=== PATIENT | female | born 1965 | race Caucasian/White ===

== ENCOUNTER 2020-04-10 11:10 | Emergency (ER) | payer SELFPAY ==
--- OUTSIDE RECORDS SUMMARY | 2020-04-10 11:24 | XMS REPORT | Summary of Care ---
:1965 Author Organization [facility] - [facility] Address [address] [place] [id number] Care Team Providers Name Role Phone Pcp, Does Not Have A Primary Care Provider Reason for Visit Reason Comments Abscess left arm Auth/Cert Status Reason Specialty Diagnoses / Referred By Referred To Procedures Contact Contact Emergency Medicine [facility] Em ergency Dept [address] [place] [phone] Fax: Encounter Details Date Type Department Care Team Description 03/29/2020 Emergency ADC-Emergency Sarah Millan Absces s (Primary Dx) Department [employer] [address] [place] [address] [address] [place] [address] [address] [place] [address] Allergies No Known Allergiesdocumented as of this encounter (statuses as of 03/29/2020) Medications Medication Sig Dispensed Refills Start Date End Date Status buPROPion SR Take 1 tablet by 180 tablet 0 01/18/2017 Active (WELLBUTRIN SR) 150 mouth 2 (two) mg SR tablet times daily. mupirocin 2 % Apply to 22 g 0 03/14/2020 Activ e ointmentIndications: area(s) 3 Wound of right lower (three) times extremity, initial daily. encounter cephALEXin 500 mg Take 1 tablet by 28 tablet 0 03/29/2020 11/0 09/2019 Active tabletIndications: mouth 4 (four) Abscess times daily for 7 days. traMADoL 50 mg Take 1 tablet by 10 tablet 0 03/29/2020 Active tabletIndications: mouth every 6 acute pain (six) hours as needed for Pain (scale 7-10). 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 1 Smoking addiction 03/15/2020 Cellulitis of right lower extremity 03/15/2020 Depression 11/20/2016 Anxiety 11/20/2016 Smoker 11/20/2016 documented as of this encounter (statuses as of 03/29/2020) Immunizations Name Administration Dates Next Due TDAP 01/29/2020 documented as of this encounter Social History Tobacco Use Types Packs/Day Years Used Date Current Every Day Smoker Cigarettes 0.25 20 Smokeless Tobacco: Never Used Alcohol Use Drinks/Week oz/Week Comments No Sex Assigned at Date Recorded Not on file COVID-19 Exposure Response Date Recorded In the last month, have you been in contact with No / Unsure 03/29/2020 10:50 AM CDT someone who was confirmed or suspected to have Coronavirus / COVID-19? documented as of this encounter Last Filed Vital Signs Vital Sign Reading Time Taken Comments Blood Pressure 129/78 03/29/2020 12:16 PM CDT Pulse 81 03/29/2020 12:16 PM CDT Temperature 37.1 C (98.8 F) 03/29/2020 12:16 PM CDT Respiratory Rate 16 03/29/2020 12:16 PM CDT Oxygen Saturation 99% 03/29/2020 12:16 PM CDT Inhaled Oxygen Concentration - - Weight 86.2 kg (190 lb) 03/29/2020 10:54 AM CDT Height 175.3 cm (5' 9") 03/29/2020 10:54 AM CDT Body Mass Index 28.06 03/29/2020 10:54 AM CDT documented in this encounter Discharge Instructions InstructionsIbSarah garay FNP - 03/29/2020 You were seen today for Chief Complaint Patient presents with Abscess left arm Your ER diagnosis was ICD-10-CM ICD-9-CM 1. Abscess L02.91 682.9 NO LIFE-THREATENING FINDINGS ON TODAY'S EXAM. YOUR PRESCRIPTIONS : Medication List START taking these medications cephALEXin 500 mg tablet Commonly known as: KEFLEX Take 1 tablet by mouth 4 (four) times daily for 7 days. traMADoL 50 mg tablet Commonly known as: ULTRAM Take 1 tablet by mouth every 6 (six) hours as needed for Pain (scale 7-10). Indications: acute pain ASK your doctor about these medications buPROPion SR 150 mg SR tablet Commonly known as: Wellbutrin SR Take 1 tablet by mouth 2 (two) times daily. mupirocin 2 % ointment Commonly known as: BACTROBAN OINT Apply to area(s) 3 (three) times daily. Where to Get Your Medications You can get these medications from any pharmacy Bring a paper prescription for each of these medications cephALEXin 500 mg tablet traMADoL 50 mg tablet ER precautions and follow up : 1. Return to ER if your symptoms should worsen or fail to improve within 72 hours. 2. The care provided in the emergency room was for acute problems only. 3. You should follow up with your primary care provider within 72 hours. 4. Fill and take all your medications as prescribed. 5. Make sure you are staying adequately hydrated. Busque attencion immediatamente si usted tiene los sitomas sigue, vuelve peor o si hay sitomas nuevas o para cualquiera preoccupacion incluyendo dolor del pecho, falta aire, se siente debile, mas fievre, mas dolor, nausea, vomitando, sangrando que no es normal, confusion, baja or pierdas conciencia. FOLLOW-UP RECOMMENDATIONS: RECOMMEND FOLLOW-UP WITH A PRIMARY CARE PROVIDER OR SPECIALIST IN 2-5 DAYS, ESPECIALLY IF NO IMPROVEMENT IN SYMPTOMS. MAY FOLLOW-UP WITH A PROVIDER OF YOUR CHOICE, SUCH : 1. A PHYSICIAN OF YOUR CHOICE 2. [facility], . LOCATIONS IN MEDICAL CENTER CLINIC 3. [facility], [address], [place]; [phone] OR, IF YOU WISH TO FOLLOW-UP WITHIN THE [facility], MAY TRY THESE OPTIONS (CLINIC APPOINTMENTS AVAILABLE ON NQOS-PP-EDEI BASIS): 1. SCHEDULE AN APPOINTMENT ONLINE AT [email or web address][facility] 2. OR CALL THE [facility] ACCESS CENTER AT OR 3. OR CALL YOUR [facility] PHYSICIAN'S OFFICE DIRECTLY IF YOU ARE ALREADY AN ESTABLISHED [facility] PATIENT. AttachmentsThe following attachments cannot be sent through Care Everywhere. Abscess, Incision And Drainage (Fijian)documented in this encounter ED Notes Isamar Hernandez RN - 03/29/2020 10:45 AM CDTPatient came in with complaints of abscess to the medial aspect of her left upper arm since Thursday. Patient said she had a trauma to her left arm on January 28 but noticed the abscess this Thursday. Patient a&ox4 upon arrival. documented in this encounter Miscellaneous Notes ED Nurse Note - Isamar Hernandez RN - 03/29/2020 12:19 PM CDTPatient discharged home with prescriptions and instructions given. Patient left ER vitally stable and ambulatory in steady gait and states she feels better. No valuables left in ED. documented in this encounter Plan of Treatment Name Type Priority Associated Diagnoses Order S chedule WOUND/ASPIRATE OR LAB SADIE Abscess ONCE for 1 Occurrences ABSCESS CULTURE starting until 03/29/2020 WOUND CULTURE LAB SADIE Abscess Once for 1 Occ urrences starting 2019 until 03/29/2020 Health Maintenance Due Date Last Done Comments HEPATITIS C (HCV) SCREEN 1965 PNEUMOCOCCAL 0-64 YEARS COMBINED SERIES (1 of 1 - 1970 PPSV23) Depression Screening 1976 PAP SMEAR 1985 Breast Cancer Screening (MAMMOGRAM) 2004 COLON CANCER SCREENING ANNUAL FIT/FOBT 2014 COLON CANCER SCREENING FIT DNA EVERY 3 YEARS 2014 COLON CANCER SCREENING SIGMOIDOSCOPY EVERY 5 YEARS 2014 COLONOSCOPY 2014 Colorectal Cancer Screening 2014 Zoster Recombinant Vaccine (SHINGRIX) (1 of 2) 2014 LUNG CANCER SCREEN: Recommended for age 55-80 with 30 08/29/2019 + pack year history INFLUENZA VACCINE (#1) 2020 DTaP,Tdap,and Td Vaccines (2 - Td) 01/28/2030 01/29/2020 documented as of this encounter Procedures Procedure Name Priority Date/Time Associated Diagnosis Comme nts NOTICE OF PRIVACY Routine 03/29/2020 10:43 AM CDT PRACTICES CONSENT/REFUSAL FOR Routine 03/29/2020 10:43 AM CDT DIAGNOSIS AND TREATMENT documented in this encounter Results Not on filedocumented in this encounter Visit Diagnoses Diagnosis Abscess - Primary Cellulitis and abscess of unspecified si te documented in this encounter
--- OUTSIDE RECORDS SUMMARY | 2020-04-10 11:24 | XMS REPORT | Summary of Care ---
:1965 Author Organization [facility] - [facility] Address [address] [place] [id number] Care Team Providers Name Role Phone Pcp, Does Not Have A Primary Care Provider Reason for Referral (STAT) Status Reason Specialty Diagnoses / Referred By Referred To Procedures Contact Contact Authorized Plastic Surgery Diagnoses Wound of right lower extremity, initial encounter Varsah Sales Procedures CONSULT/REFERRAL WOUND CARE RICCO Hurst [address] [place] [phone] Reason for Visit Reason Comments Wound open area to right calf Encounter Details Date Type Department Care Team Description 03/14/2020 Urgent Care [facility] Giovana Wynn FNP [address] [place] [phone] Wound of right lower extremity, initial encounter (Primary Dx); [facility] Provider, [facility] Elevated BP without diagnosis of hyperte nsion; [address] [place] [phone] Allergies No Known Allergiesdocumented as of this encounter (statuses as of 03/15/2020) Medications Medication Sig Dispensed Refills Start Date End Date Status buPROPion SR Take 1 180 tablet 0 01/18/2017 Activ e (WELLBUTRIN SR) tablet by 150 mg SR tablet mouth 2 (two) times daily. sulfamethoxazole- Take 1 14 tablet 0 03/14/2020 A ctive trimethoprim tablet by 0 (BACTRIM DS) mouth 2 800-160 mg per (two) times tabletIndications daily for 7 : Wound of right days. lower extremity, initial encounter mupirocin 2 % Apply to 22 g 0 03/14/2020 Activ e ointmentIndicatio area(s) 3 ns: Wound of (three) right lower times daily. extremity, initial encounter predniSONE 20 mg 3 tabs PO QD 18 tablet 0 11/20/2016 Discontinued tabletIndications X 3 days, 0 (T herapy : Sinusitis, then 2 tabs compl eted) unspecified PO QD X 3 chronicity, days, then 1 unspecified tab PO QD X location 3 days traMADol 50 mg Take 1 20 tablet 0 02/06/2019 Disc ontinued tabletIndications tablet by 0 (T herapy : Rib pain on mouth every comp leted) left side 8 (eight) hours as needed for Pain (scale 4-6). 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 documented as of this encounter Last Filed Vital Signs Vital Sign Reading Time Taken Comments Blood Pressure 150/89 03/14/2020 2:14 PM CDT Pulse 90 03/14/2020 2:09 PM CDT Temperature 37.1 C (98.7 F) 03/14/2020 2:09 PM CDT Respiratory Rate 18 03/14/2020 2:09 PM CDT Oxygen Saturation 98% 03/14/2020 2:09 PM CDT Inhaled Oxygen Concentration - - Weight 86.2 kg (190 lb) 03/14/2020 2:09 PM CDT Height 175.3 cm (5' 9") 03/14/2020 2:09 PM CDT Body Mass Index 28.06 03/14/2020 2:09 PM CDT documented in this encounter Patient Instructions Patient InstructionsVarsha Sales PA - 03/14/2020 2:00 PM CDT Patient Education Cellulitis Cellulitis is an infection of the deep layers of skin. A break in the skin, such as a cut or scratch, can let bacteria under the skin. If the bacteria get to deep layers of the skin, it can be serious.If not treated, cellulitis can get into the bloodstream and lymph nodes. The infection can then spread throughout the body. This causes serious illness. Cellulitis causes the affected skin to become red, swollen, warm, and sore. The reddened areas have a visible border. An open sore may leak fluid (pus). You may have a fever, chills, and pain. Cellulitis is treated with antibiotics taken for 7 to 10 days. An open sore may be cleaned and covered with cool wet gauze. Symptoms should get better 1 to 2 days after treatment is started. Make sure to take all the antibiotics for the full number of days until they are gone. Keep taking the medicineeven if your symptoms go away. Home care Follow these tips: Limit the use of the part of your body with cellulitis. If the infection is on your leg, keep your leg raised while sitting. This helps reduce swelling. Take all of the antibiotic medicine exactly as directed until it is gone. Don't miss any doses, especially during the first 7 days. Dont stop taking the medicine when your symptoms get better. Keep the affected area clean and dry. Wash your hands with soap and clean, running water before and after touching your skin. Anyone else who touches your skin should also wash his or her hands. Don't share towels. Follow-up care Follow up with your healthcare provider, or as advised. If your infection doesn't go away on the first antibiotic, your healthcare provider will prescribe a different one. When to seek medical advice Call your healthcare provider right away if any of these occur: Red areas that spread Swelling or pain that gets worse Fluid leaking from the skin (pus) Fever higher of 100.4 F (38.0 C) or higher after 2 days on antibiotics [employer] last reviewed this educational content on 12/30/201819996997-3240 [employer], [employer]. [address] [place] [address], [place] [address]. All rights reserved. This information is not intended as a substitute for professional medical care. Always follow your healthcare professional's instructions. Patient Education Sulfamethoxazole; Trimethoprim, SMX-TMP tablets Brand Names: Bacter-Aid DS, Bactrim, Bactrim DS, Septra, Septra DS What is this medicine? SULFAMETHOXAZOLE; TRIMETHOPRIM or SMX-TMP (suhl fuh meth OK carlos enrique zohl; trye METH oh prim) is a combination of a sulfonamide antibiotic and a second antibiotic, trimethoprim. It is used to treat or prevent certain kinds of bacterial infections. It will not work for colds, flu, or other viral infections. How should I use this medicine? Take this medicine by mouth with a full glass of water. Follow the directions on the prescription label. Take your medicine at regular intervals. Do not take it more often than directed. Do not skip doses or stop your medicine early. Talk to your traveling auditor regarding the use of this medicine in children. Special care may be needed. This medicine has been used in children as young as 2 months of age. What side effects may I notice from receiving this medicine? Side effects that you should report to your doctor or health career guidance counselor as soon as possible: allergic reactions like skin rash or hives, swelling of the face, lips, or tongue breathing problems fever or chills, sore throat irregular heartbeat, chest pain joint or muscle pain pain or difficulty passing urine red pinpoint spots on skin redness, blistering, peeling or loosening of the skin, including inside the mouth unusual bleeding or bruising unusually weak or tired yellowing of the eyes or skin Side effects that usually do not require medical attention (report to your doctor or health career guidance counselor if they continue or are bothersome): diarrhea dizziness headache loss of appetite nausea, vomiting nervousness What may interact with this medicine? Do not take this medicine with any of the following medications: aminobenzoate potassium dofetilide metronidazole This medicine may also interact with the following medications: FANY inhibitors like benazepril, enalapril, lisinopril, and ramipril control pills cyclosporine digoxin diuretics indomethacin medicines for diabetes methenamine methotrexate phenytoin potassium supplements pyrimethamine sulfinpyrazone tricyclic antidepressants warfarin What if I miss a dose? If you miss a dose, take it as soon as you can. If it is almost time for your next dose, take only that dose. Do not take double or extra doses. Where should I keep my medicine? Keep out of the reach of children. Store at room temperature between 20 to 25 degrees C (68 to 77 degrees F). Protect from light. Throwaway any unused medicine after the expiration date. What should I tell my health care provider before I take this medicine? They need to know if you have any of these conditions: anemia asthma being treated with anticonvulsants if you frequently drink alcohol containing drinks kidney disease liver disease low level of folic acid or fppuvhh-[id number] dehydrogenase poor nutrition or malabsorption porphyria severe allergies thyroid disorder an unusual or allergic reaction to sulfamethoxazole, trimethoprim, sulfa drugs, other medicines, foods, dyes, or preservatives or trying to get breast-feeding What should I watch for while using this medicine? Tell your doctor or health career guidance counselor if your symptoms do not improve. Drink several glasses of water a day to reduce the risk of kidney problems. Do not treat diarrhea with over the counter products. Contact your doctor if you have diarrhea that lasts more than 2 days or if it is severe and watery. This medicine can make you more sensitive to the sun. Keep out of the sun. If you cannot avoid beingin the sun, wear protective clothing and use a sunscreen. Do not use sun lamps or tanning beds/booths. NOTE:This sheet is a summary. It may not cover all possible information. If you have questions aboutthis medicine, talk to your doctor, pharmacist, or health care provider. Copyright 2018 [employer] documented in this encounter Progress Notes Varsha Sales PA - 03/14/2020 2:00 PM CDT Cc: Chief Complaint Patient presents with Wound open area to right calf Camila Fields is a 54 year old female. Wound: Location: R calf Patient fell off horse and then horse stepped on her. She was transported to [facility] for large LUE wound at that time. She did have wound to R calf but at the time was more bruised. Had imaging done there including CT head, thorax and a/p. Patient advised to have surgery to LUE but decided to leave AMA so they sutured her LUE and she left. Was a bruise and but about 3 weeks ago started opening up and turned red Run over by horse 01/29/2020 Color: red Size: medium on R calf Changes in size or color: now more red where as before it was more bruised Last TDAP: 01/29/2020 Associated s/s: + tenderness + redness No f/c No streaking redness, warmth, swelling No purulent drainage, induration No restricted ROM or pain with ROM No abdominal pain, n/v/d/c Tx: neosporin Allergies Camila has No Known Allergies. Medications Current Outpatient Medications Medication Sig Dispense Refill buPROPion SR (WELLBUTRIN SR) 150 mg SR tablet Take 1 tablet by mouth 2 (two) times daily. 180 tablet 0 No current facility-administered medications for this visit. Histories Past Medical History: Diagnosis Date Cancer Depression Past Surgical History: Procedure Laterality Date HYSTERECTOMY Social History Socioeconomic History Marital status: Single Spouse name: Not on file Number of children: Not on file Years of education: Not on file Highest education level: Not on file Occupational History Not on file Social Needs Financial resource strain: Not on file Food insecurity Worry: Not on file Inability: Not on file Transportation needs Medical: Not on file Non-medical: Not on file Tobacco Use Smoking status: Current Every Day Smoker Packs/day: 0.25 Years: 20.00 Pack years: 5.00 Types: Cigarettes Smokeless tobacco: Never Used Substance and Sexual Activity Alcohol use: No Drug use: No Sexual activity: Never Lifestyle Physical activity Days per week: Not on file Minutes per session: Not on file Stress: Not on file Relationships Social connections Talks on phone: Not on file Gets together: Not on file Attends voodoo service: Not on file Active member of club or organization: Not on file Attends meetings of clubs or organizations: Not on file Relationship status: Not on file Intimate partner violence Fear of current or ex partner: Not on file Emotionally abused: Not on file Physically abused: Not on file Forced sexual activity: Not on file Other Topics Concern Not on file Social History Narrative Lives with friends. No history of abuse Current everyday smoker History reviewed. No pertinent family history. Review of Systems Constitutional: Negative for activity change, appetite change, chills, diaphoresis, fatigue, fever and unexpected weight change. Respiratory: Negative for cough, chest tightness, shortness of breath and wheezing. Cardiovascular: Negative for chest pain, palpitations and leg swelling. Gastrointestinal: Negative for abdominal pain, constipation, diarrhea, nausea and vomiting. Musculoskeletal: Negative for arthralgias, back pain, gait problem and myalgias. Skin: Positive for wound. Negative for pallor and rash. Neurological: Negative for weakness and numbness. Vital Signs BP (!) 150/89 | Pulse 90 | Temp 37.1 C (98.7 F) (Oral) | Resp 18 | Ht 5' 9" (1.753 m) | Wt 190 lb (86.2 kg) | SpO2 98% | BMI 28.06 kg/m Vitals: 03/14/20 1409 03/14/20 1414 BP: (!) 154/89 (!) 150/89 Pulse: 90 Resp: 18 Temp: 37.1 C (98.7 F) TempSrc: Oral SpO2: 98% Weight: 190 lb (86.2 kg) Height: 5' 9" (1.753 m) Physical Exam Vitals signs and nursing note reviewed. Constitutional: General: She is not in acute distress. Appearance: She is not ill-appearing, toxic-appearing or diaphoretic. HENT: Head: Normocephalic and atraumatic. Right Ear: External ear normal. Left Ear: External ear normal. Eyes: Conjunctiva/sclera: Conjunctivae normal. Cardiovascular: Rate and Rhythm: Normal rate and regular rhythm. Pulmonary: Effort: Pulmonary effort is normal. Breath sounds: Normal breath sounds. Abdominal: General: Bowel sounds are normal. There is no distension. Tenderness: There is no abdominal tenderness. There is no guarding. Musculoskeletal: Normal range of motion. Right lower leg: No edema. Left lower leg: No edema. Skin: General: Skin is warm and dry. Neurological: Mental Status: She is alert. Assessment/Plan Wound of right lower extremity, initial encounter (primary encounter diagnosis) Plan: CONSULT/REFERRAL WOUND CARE, sulfamethoxazole-trimethoprim (BACTRIM DS) 800-160 mg per tablet, mupirocin 2 % ointment Afebrile, well appearing, nontoxic, NAD. HR < 100. Wound x 2 months. Now with signs of cellulitis. Recommended imaging, labs and wound culture. Patient refuses at this time. Needs follow-up with wound care for management. Patient agrees. Will start on bactrim, take full course of abx with food and probiotic. Appointment scheduled with wound care tomorrow, recommend follow-up. Educated on the following at home care: -Take full course of antibiotic with food, probiotic. -Wash TID with warm soap and water -Apply mupirocin TID with q-tip -Warm compress -Julio César borders of erythema to monitor -Avoid picking/popping ER--> worsening, severe pain, f/c, n/v, spreading redness Elevated BP without diagnosis of hypertension Plan: No pmh of HTN. No cp, palpitations, sob, HO, dizziness, syncope. Watch blood pressure: check 2-3 times daily and log. Look for high numbers >= 130/80. Log reading. Follow up with PCP. Low salt Low caffeine diet Low alcohol Avoid tobacco products. Avoid decongestants Heart Healthy Exercise: total of 150 minutes of cardio: walking,swimming, hiking, biking every week. Heart healthy diet: low fat/carb/sugar diet; increase lean meat-chicken, turkey, fish; increase vegetables/fruits ( still be careful because elevated sugar level) Er--> chest pain, dizziness, passing out, fluttering of heart, shortness of breath. Financial difficulties Plan: CONSULT/REFERRAL SOCIAL WORK-AMBULATORY Patient without medical insurance. Information provided about [facility] clinic. Will reach out to to help get connected with available resources. Pt ed/precautions given in detail regarding conditions/medicaitons. Er precautions given. Pt reportsunderstanding and agrees. rtc if s/s worsen or do not improve; Plan of care, desired health behaviors, goals, Ddx, & any prescribed or OTC medications discussed with patient. Education resources & self management tools provided and reviewed with AVS. Patient/guardian/family verbalized understanding & agrees to plan of care. Barriers to care: NONE Ability to manage care: Good This visit did not involve counseling and coordination that comprised more than 50% of the visit time. documented in this encounter Plan of Treatment Date Type Specialty Care Team Description 03/20/2020 Office Visit Internal Medicine Boston Burt MD [address] [address] [phone] Health Maintenance Due Date Last Done Comments HEPATITIS C (HCV) SCREEN 1965 PNEUMOCOCCAL 0-64 YEARS COMBINED SERIES (1 of 1 - 1970 PPSV23) Depression Screening 1976 DTaP,Tdap,and Td Vaccines (1 - Tdap) 08/29/1983 PAP SMEAR 1985 Breast Cancer Screening (MAMMOGRAM) 2004 COLON CANCER SCREENING ANNUAL FIT/FOBT 2014 COLON CANCER SCREENING FIT DNA EVERY 3 YEARS 2014 COLON CANCER SCREENING SIGMOIDOSCOPY EVERY 5 YEARS 2014 COLONOSCOPY 2014 Colorectal Cancer Screening 2014 Zoster Recombinant Vaccine (SHINGRIX) (1 of 2) 2014 LUNG CANCER SCREEN: Recommended for age 55-80 with 30 + 08/29/19 20 pack year history INFLUENZA VACCINE (#1) 2020 documented as of this encounter Results Not on filedocumented in this encounter Visit Diagnoses Diagnosis Wound of right lower extremity, initial encounter - Primary Elevated BP without diagnosis of hyperte nsion Financial difficulties Inadequate material resources documented in this encounter
--- OUTSIDE RECORDS SUMMARY | 2020-04-10 11:24 | XMS REPORT | Summary of Care ---
:1965 Author Organization [facility] Address [address] [place] [id number] Care Team Providers Name Role Phone Pcp, Does Not Have A Primary Care Provider Reason for Visit Reason Comments Social Work Financial Assistance Encounter Details Date Type Department Care Team Description 03/15/2020 Patient Outreach [facility] Family Adriana Mahoney So cial Work Medicine [facility] ([address] Drive [place], [place] [phone] Allergies No Known Allergiesdocumented as of this encounter (statuses as of 03/15/2020) Medications Medication Sig Dispensed Refills Start Date End Date Status buPROPion SR Take 1 tablet by 180 tablet 0 01/18/2017 Active (WELLBUTRIN SR) 150 mouth 2 (two) mg SR tablet times daily. sulfamethoxazole-trim Take 1 tablet by 14 tablet 0 03/14/2020 03/21/2020 Active ethoprim (BACTRIM DS) mouth 2 (two) 800-160 mg per times daily for tabletIndications: 7 days. Wound of right lower extremity, initial encounter mupirocin 2 % Apply to 22 g 0 03/14/2020 Activ e ointmentIndications: area(s) 3 Wound of right lower (three) times extremity, initial daily. encounter documented as of this encounter (statuses as [...] of this encounter Last Filed Vital Signs Not on filedocumented in this encounter Progress Notes Adriana Mahoney LMSW - 03/15/2020 11:44 AM CDTSocial Work Note Warp Dyeing Tender (SW) received consult/order for Financial Assistance. SW spoke with patient by phone (p: [phone] em: [email or web address]) to assess needs. Patient reports presently uninsured/unemployed; seeking program to assist with primary care and medications. SW reviewed final resources for basic needs. Patient reports presently receiving unemployment compensation. SW reviewed emergency SNAP benefit program (p: [phone]). Patent verbalized understanding. SW reviewed [facility] p: [phone] and [facility] [place] p:[phone]) program services Medical, Dental, Medications and Behavioral Health ;providing contactinformation. Patient verbalized understanding; expressing appreciation. No new needs identified at p resent. SW services complete. Adriana Mahoney LMSW, [facility] Warp Dyeing Tender- Stock Holder Management [facility] [place], Marlyn [place] and [place] Ph: [phone] Pager: [phone] Em: [email or web address] documented in this encounter Plan of Treatment Date Type Specialty Care Team Description 03/20/2020 Office Visit Internal Medicine Boston Burt MD [address] [place] [address] [phone] Health Maintenance Due Date Last Done Comments [...]
--- OUTSIDE RECORDS SUMMARY | 2020-04-10 11:24 | XMS REPORT | Summary of Care ---
:1965 Author Organization [facility] - Health Address [address] [place] [address] Care Team Providers Name Role Phone Pcp, Does Not Have A Primary Care Provider Encounter Details Date Type Department Care Team Description 02/07/2020 Orders Only [facility] Doctor Unassigned, No [address] [facility] [place] [address] [address] [place] [address] Allergies No Known Allergiesdocumented as of this encounter (statuses as of 02/07/2020) Medications Medication Sig Dispensed Refills Start Date End Date Status predniSONE 20 mg 3 tabs PO QD X 3 18 tablet 0 11/20/2016 Active tabletIndications: days, then 2 tabs Sinusitis, unspecified PO QD X 3 days, chronicity, then 1 tab PO QD unspecified location X 3 days buPROPion SR Take 1 tablet by 180 tablet 0 01/18/2017 Active (WELLBUTRIN SR) 150 mg mouth 2 (two) SR tablet times daily. traMADol 50 mg Take 1 tablet by 20 tablet 0 02/06/2019 Active tabletIndications: Rib mouth every 8 pain on left side (eight) hours as needed for Pain (scale 4-6). documented as of this encounter (statuses as of 02/07/2020) Active Problems Problem Noted Date Depression 11/20/2016 Anxiety 11/20/2016 Smoker 11/20/2016 documented as of this encounter (statuses as of 02/07/2020) Social History Tobacco Use Types Packs/Day Years Used Date Current Every Day Smoker Cigarettes 0.25 20 Smokeless Tobacco: Never Used Alcohol Use Drinks/Week oz/Week Comments No Sex Assigned at Date Recorded Not on file COVID-19 Exposure Response Date Recorded In the last month, have you been in contact with No / Unsure 02/06/2020 9:00 AM CDT someone who was confirmed or suspected to have Coronavirus / COVID-19? documented as of this encounter Last Filed Vital Signs Not on filedocumented in this encounter Plan of Treatment Health Maintenance Due Date Last Done Comments [...] (#1) 2020 documented as of this encounter Procedures Procedure Name Priority Date/Time Associated Diagnosis Comme nts ASSIGNMENT OF BENEFITS Routine 02/07/2020 4:05 PM CDT documented in this encounter Results Not on filedocumented in this encounter
--- OUTSIDE RECORDS SUMMARY | 2020-04-10 11:24 | XMS REPORT | Summary of Care ---
:1965 Author Organization [facility] - Health Address [address] [place] [address] Care Team Providers Name Role Phone Pcp, Does Not Have A Primary Care Provider Reason for Visit Reason Comments Other patient states left arm lace ration is " infected"- sutures placed on 01/29/2020 Encounter Details Date Type Department Care Team Description 02/07/2020 Urgent Care [facility] Family Giovana Wynn FNP [address] [place] [address] Laceration of left Medicine - [place] Provider, [facility] upper extremity, [address] [facility] initial [address] (Primary Dx) [place] [address] Allergies No Known Allergiesdocumented as of this encounter (statuses as of 02/07/2020) Medications Medication Sig Dispensed Refills Start Date End Date Status predniSONE 20 mg 3 tabs PO QD X 3 18 tablet 0 11/20/2016 Active tabletIndications: days, then 2 Sinusitis, tabs PO QD X 3 unspecified days, then 1 tab chronicity, PO QD X 3 days unspecified location buPROPion SR Take 1 tablet by 180 tablet 0 01/18/2017 Active (WELLBUTRIN SR) 150 mouth 2 (two) mg SR tablet times daily. traMADol 50 mg Take 1 tablet by 20 tablet 0 02/06/2019 Active tabletIndications: mouth every 8 Rib pain on left side (eight) hours as needed for Pain (scale 4-6). amoxicillin-clavulana Take 1 tablet by 14 tablet 0 02/07/2020 02/14/2020 Active te 875-125 mg per mouth 2 (two) tabletIndications: times daily for Laceration of left 7 days. upper extremity, initial encounter fluconazole Take 1 tablet by 1 tablet 0 02/07/2020 02/07/2020 Active (DIFLUCAN) 150 mg mouth once now tabletIndications: for 1 dose. Laceration of left upper extremity, initial encounter acetaminophen-codeine Take 1 tablet by 20 tablet 0 02/07/2020 02/14/2020 Active (TYLENOL-CODEINE #3) mouth every 8 300-30 mg (eight) hours as tabletIndications: needed for Pain acute pain (scale 4-6) for up to 7 days. Indications: acute pain documented as of this [...] been in contact with No / Unsure 02/07/2020 4:05 PM CDT someone who was confirmed or suspected to have Coronavirus / COVID-19? documented as of this encounter Last Filed Vital Signs Vital Sign Reading Time Taken Comments Blood Pressure 179/95 02/07/2020 4:23 PM CDT Pulse 82 02/07/2020 4:22 PM CDT Temperature 37.1 C (98.8 F) 02/07/2020 4:22 PM CDT Respiratory Rate 18 02/07/2020 4:22 PM CDT Oxygen Saturation 98% 02/07/2020 4:22 PM CDT Inhaled Oxygen Concentration - - Weight 81.6 kg (180 lb) 02/07/2020 4:22 PM CDT Height 175.3 cm (5' 9") 02/07/2020 4:22 PM CDT Body Mass Index 26.58 02/07/2020 4:22 PM CDT documented in this encounter Patient Instructions Patient InstructionsAlem Reynaga FNP - 02/07/2020 4:00 PM CDT1. Laceration of left upper extremity, initial encounter - amoxicillin-clavulanate 875-125 mg per tablet; Take 1 tablet by mouth 2 (two) times daily for 7 days. Dispense: 14 tablet; Refill: 0 - fluconazole (DIFLUCAN) 150 mg tablet; Take 1 tablet by mouth once now for 1 dose. Dispense: 1 tablet; Refill: 0 - acetaminophen-codeine (TYLENOL-CODEINE #3) 300-30 mg tablet; Take 1 tablet by mouth every 8 (eight) hours as needed for Pain (scale 4-6) for up to 7 days. Indications: acute pain Dispense: 20 tablet; Refill: 0 Pain Ibuprofen 200mg take 3 tablets every 6-8 hours with food if needed. Acetaminophen (Tylenol) 500mg take 2 tablets every 6 hours if needed. Tylenol and ibuprofen may be taken at the same time and give greater relief than expected if add thetwo effects together, called "1+1 = 3" So, may take Ibuprofen 3 pills and Acetaminophen 2 pills all at once 3 to 4 times a day. Codeine if narcotic necessary, Has a tylenol in it, to be counted in daily total. Do not drive or engage in hazardous activities for 4 hours after taking codeine. - wash gently with antibacterial soap - follow up if any signs or symptoms of infection develop such as, increasing redness, warm to touch, increasing pain, or drainage or fever. - Follow up with PCP, urgent care or ER in 2-3 days or sooner if symptoms do now improve or worsens.Patient/parent verbalized understanding and agreed with plan of care. documented in this encounter Progress Notes Alem Reynaga FNP - 02/07/2020 4:00 PM CDT Cc: Chief Complaint Patient presents with Other patient states left arm laceration is " infected"- sutures placed on 01/29/2020 HPI Camila Fields is a 54 year old female presents with concern for skin infection. DOI 01/29/20200and she had accident on horse and he stepped on her left arm. She had broken vertebrae and 2 ribs with large laceration to left upper arm. She had sutures placed and completed 7 days of Augmentin. She noticed about 2 days ago drainage that was greenish and was concerned for infection. Denies any fever, chills and body aches. Allergies Camila has No Known Allergies. Medications Outpatient Medications Prior to Visit Medication Sig Dispense Refill traMADol 50 mg tablet Take 1 tablet by mouth every 8 (eight) hours as needed for Pain (scale 4-6). 20 tablet 0 buPROPion SR (WELLBUTRIN SR) 150 mg SR tablet Take 1 tablet by mouth 2 (two) times daily. 180 tablet 0 predniSONE 20 mg tablet 3 tabs PO QD X 3 days, then 2 tabs PO QD X 3 days, then 1 tab PO QD X 3 days 18 tablet 0 No facility-administered medications prior to visit. Histories Past Medical History: Diagnosis Date [...] file Gets together: Not on file Attends mandaen service: Not on file Active member of [...] Negative for activity change, appetite change, chills, fatigue and fever. HENT: Negative for sore throat. Respiratory: Negative for cough, shortness of breath, wheezing and stridor. Gastrointestinal: Negative for diarrhea, nausea and vomiting. Skin: Positive for color change and wound. Neurological: Negative for dizziness, weakness and headaches. All other systems reviewed and are negative. Vital Signs BP (!) 179/95 | Pulse 82 | Temp 37.1 C (98.8 F) (Oral) | Resp 18 | Ht 5' 9" (1.753 m) | Wt 180 lb (81.6 kg) | SpO2 98% | BMI 26.58 kg/m Physical Exam Vitals signs and nursing note reviewed. Constitutional: Appearance: She is well-developed. HENT: Head: Normocephalic and atraumatic. Right Ear: External ear normal. Left Ear: External ear normal. Nose: Nose normal. Mouth/Throat: Lips: Mad[place]. Mouth: Mucous membranes are moist. Pharynx: Oropharynx is clear. Eyes: Conjunctiva/sclera: Conjunctivae normal. Neck: Musculoskeletal: Normal range of motion and neck supple. Cardiovascular: Rate and Rhythm: Normal rate and regular rhythm. Heart sounds: Normal heart sounds. No murmur. No friction rub. No gallop. Pulmonary: Effort: Pulmonary effort is normal. No respiratory distress. Breath sounds: Normal breath sounds. No wheezing, rhonchi or rales. Musculoskeletal: Normal range of motion. Skin: General: Skin is warm and dry. Findings: Laceration present. Comments: Left upper arm with sutures in place; no surrounding redness or erythema to skin; some drainage noted to middle of suture. Neurological: Mental Status: She is alert and oriented to person, place, and time. Psychiatric: Behavior: Behavior normal. Assessment/Plan Camila Fields is a 54 year old female presents with concern for skin infection. 1. Laceration of left upper extremity, initial encounter - amoxicillin-clavulanate 875-125 mg per tablet; Take 1 tablet by mouth 2 (two) times daily for 7 days. Dispense: 14 tablet; Refill: 0 - fluconazole (DIFLUCAN) 150 mg tablet; Take 1 tablet by mouth once now for 1 dose. Dispense: 1 tablet; Refill: 0 - acetaminophen-codeine (TYLENOL-CODEINE #3) 300-30 mg tablet; Take 1 tablet by mouth every 8 (eight) hours as needed for Pain (scale 4-6) for up to 7 days. Indications: acute pain Dispense: 20 tablet; Refill: - wash gently with antibacterial soap - follow up if any signs or symptoms of infection develop such as, increasing redness, warm to touch, increasing pain, or drainage or fever. - Follow up with PCP, urgent care or ER in 2-3 days or sooner if symptoms do now improve or worsens.Patient/parent verbalized understanding and agreed with plan of care. Pain Ibuprofen 200mg take 3 tablets every 6-8 hours with food if needed. Acetaminophen (Tylenol) 500mg take 2 tablets every 6 hours if needed. Tylenol and ibuprofen may be taken at the same time and give greater relief than expected if add thetwo effects together, called "1+1 = 3" So, may take Ibuprofen 3 pills and Acetaminophen 2 pills all at once 3 to 4 times a day. Codeine if narcotic necessary, Has a tylenol in it, to be counted in daily total. Do not drive or engage in hazardous activities for 4 hours after taking codeine. Plan of care, desired health behaviors, goals, and medication discussed with patient. Education resources provided and reviewed with AVS. Patient/guardian/family verbalized understanding & agrees to plan of care. If applicable, the [employer] database was accessed to review any controlled substance prescription claims data. The [employer] prescription claims data in [employer] was reviewed to assess patient compliance with the medication treatment plan. Urgent Care precautions and follow up : 1. Return to clinic if your symptoms should worsen or fail to improve within 72 hours. 2. The care provided in the urgent care was for acute problems only. 3. You should follow up with your primary care provider within 72 hours. 4. Fill and take all your medications as prescribed. 5. Make sure you are staying adequately hydrated. MAY FOLLOW-UP WITH A PROVIDER OF YOUR CHOICE, SUCH : 1. A PHYSICIAN OF YOUR CHOICE OR, IF YOU WISH TO FOLLOW-UP WITHIN THE [facility], MAY TRY THESE OPTIONS (CLINIC APPOINTMENTS AVAILABLE ON [id number] BASIS): 1. SCHEDULE AN APPOINTMENT ONLINE AT WWW.[facility] 2. OR CALL THE [facility] ACCESS CENTER AT OR 3. OR CALL YOUR [facility] PHYSICIAN'S OFFICE DIRECTLY IF YOU ARE ALREADY AN ESTABLISHED [facility] PATIENT. After hours care nurse access center available by calling [phone] 24 hours 7 days per week. Alem HARTMAN [facility] documented in this encounter Plan of Treatment Health Maintenance Due Date Last Done Comments HEPATITIS C (HCV) SCREEN 1965 Depression Screening 1976 DTaP,Tdap,and Td Vaccines (1 - 08/29/1983 Tdap) PAP SMEAR 1985 Breast Cancer Screening (MAMMOGRAM) 2004 COLON CANCER SCREENING ANNUAL 2014 FIT/FOBT COLON CANCER SCREENING FIT DNA 2014 EVERY 3 YEARS COLON CANCER SCREENING 2014 SIGMOIDOSCOPY EVERY 5 YEARS COLONOSCOPY 2014 Colorectal Cancer Screening 2014 Zoster Recombinant Vaccine 2014 (SHINGRIX) (1 of 2) LUNG CANCER SCREEN: Recommended for 08/29/2019 age 55-80 with 30 + pack year history INFLUENZA VACCINE (#1) 2020 PNEUMOCOCCAL 0-64 YEARS COMBINED Aged Out No longer eligible based on SERIES patient's age to complete this topic documented as of this encounter Results Not on filedocumented in this encounter Visit Diagnoses Diagnosis Laceration of left upper extremity, init ial encounter - Primary documented in this encounter
--- OUTSIDE RECORDS SUMMARY | 2020-04-10 11:25 | XMS REPORT | Continuity of Care Document ---
:1965 Author Organization [facility] t Address [address] [place] [address] Dr. [address]. [address] [place] [address] Care Team Providers Name Role Phone Leslie Taylor Attending Clinician Yana HARTMAN, F Attending Clinician Denzel CASANOVA, L Attending Clinician Provider, Urgent Care Attending Clinician Unavailable Doctor Unassigned, Name Attending Clinician Unavailable Ronnell HARTMAN Attending Clinician Problems This patient has no known problems. Allergies, Adverse Reactions, Alerts This patient has no known allergies or adverse reactions. Medications This patient has no known medications. Procedures This patient has no known procedures. Encounters Start End Encounter Admission Attending Care Care Encounter Source Date/Time Date/Time Type Type Clinicians Facility Department ID 2020-04-03 2020-04-03 Emergency Nikita Hitchcock [facility] [id number] 09:40:00 11:12:00 Leslie Diana [id number] [place] [id number] [place] [id number] 2020-03-29 2020-03-[address] [facility] [id number] 10:45:00 12:20:00 Sarah Ortiz [id number] [place] [id number] [place] [id number] 2020-03-15 2020-03-[address] [facility] [id number] 00:00:00 00:00:00 Outreach Adriana [facility] [id number] [place] [id number] Professio [phone] [place] [address] [address] 2020-03-14 2020-03-14 Urgent Provider, [facility] [id number] 13:50:57 14:42:27 Care [facility] [id number] Care [place] [id number] Professio [phone] [place] [address] [address] 2020-02-07 2020-02-07 Urgent Provider, [facility] [id number] 16:07:10 16:27:10 [facility] [id number] Care [place] [id number] Professio [phone] [place] [address] [address] 2020-02-07 2020-02-07 Orders Doctor CARROLL [id number] 00:00:00 00:00:00 Only Unassigned, JUDY [id number] [place] [facility] [id number] 2019-02-06 2019-02-06 [facility] [id number] 15:37:42 23:59:00 Encounter Alem [facility] [id number] Surgical [id number] Specialti [id number] [address] [place] 2019-02-06 2019-02-06 [facility] [id number] 15:03:21 17:07:18 Care Alem [facility] [id number] Surgical [id number] Specialti [id number] [address] [place] 2019-02-06 2019-02-06 Orders Doctor CARROLL [id number] 00:00:00 00:00:00 Only Unassigned, JUDY [id number] [place] [facility] [id number] Results This patient has no known results.
--- OUTSIDE RECORDS SUMMARY | 2020-04-10 11:25 | XMS REPORT | Summary of Care ---
:1965 Author Organization [facility] Address [address] [place] [address] Care Team Providers Name Role Phone Pcp, Does Not Have A Primary Care Provider Reason for Referral Other (Routine) Status Reason Specialty Diagnoses / Referred By Referred To Procedures Contact Contact New Request Diagnoses Abscess Nikita Hitchcock [place], [place], Procedures Discharge Follow-up: Specialty Provider EMILEE ALEGRIA; [address] [place] [address] [place] [address] [address] [facility] Phone: Maury [address] [place] [address] Fax: Reason for Visit Reason Comments Abscess left arm Auth/Cert Status Reason Specialty Diagnoses / Referred By Referred To Procedures Contact Contact Emergency Medicine [facility] Em ergency Dept [address] [place] [address] Fax: Encounter Details Date Type Department Care Team Description 04/03/2020 Emergency [facility]-Emergency Nikita Hitchcock, PAC Abscess (Primary Dx) Department [address] [place] [address] [place] [address] Dr [place]elson [place] [id number] [place] [address] Allergies No Known Allergiesdocumented as of this encounter (statuses as of 04/03/2020) Medications Medication Sig Dispensed Refills Start Date End Date Status buPROPion SR Take 1 tablet by 180 tablet 0 01/18/2017 Active (WELLBUTRIN SR) 150 mouth 2 (two) mg SR tablet times daily. mupirocin 2 % Apply to area(s) 22 g 0 03/14/2020 Active ointmentIndications: 3 (three) times Wound of right lower daily. extremity, initial encounter cephALEXin 500 mg Take 1 tablet by 28 tablet 0 03/29/2020/0 09/2019 Active tabletIndications: mouth 4 (four) Abscess times daily for 7 days. traMADoL 50 mg Take 1 tablet by 10 tablet 0 03/29/2020 Active tabletIndications: mouth every 6 acute pain (six) hours as needed for Pain (scale 7-10). Indications: acute pain clindamycin 150 mg Take 2 capsules 80 capsule 0 04/03/2020 Active capsuleIndications: by mouth 4 (four) Abscess times daily for 10 days. 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 documented as of this encounter Last Filed Vital Signs Vital Sign Reading Time Taken Comments Blood Pressure 164/88 04/03/2020 9:37 AM CD MIXER Pulse 77 04/03/2020 9:37 AM CD MIXER Temperature 36.5 C (97.7 F) 04/03/2020 9:37 AM CD MIXER Respiratory Rate 18 04/03/2020 9:37 AM CD MIXER Oxygen Saturation 98% 04/03/2020 9:37 AM CD MIXER Inhaled Oxygen Concentration - - Weight 86.2 kg (190 lb) 04/03/2020 9:37 AM CD MIXER Height - - Body Mass Index 28.06 03/29/2020 10:54 AM CDT documented in this encounter Discharge Instructions AttachmentsThe following attachments cannot be sent through Care Everywhere. Abscess, Antibiotic Treatment Only (Uzbek)documented in this encounter ED Notes Marta Soni, RN - 04/03/2020 9:35 AM CSTPatient has an abcess to her left arm; states she was recently seen for the abcess and is on antibiotics. Patient states that the area is becoming worse. documented in this encounter Miscellaneous Notes ED Nurse Note - Sadia Covarrubias RN - 04/03/2020 11:12 AM CSTDischarge instructions/prscribed medications reviewed with pt with verbalized understanding. NAD, respirations even and unlabored, AOX4, ambulatory out of ED with a steady gait. MIXER documented in this encounter Plan of Treatment [...] 01/28/2030 01/29/2020 documented as of this encounter Results Not on filedocumented in this encounter Visit Diagnoses Diagnosis Abscess - Primary Cellulitis and abscess of unspecified si te documented in this encounter Administered Medications Medication Order MAR Action Action Date Dose Rate Site clindamycin (CLEOCIN HCL) capsule Given 04/03/2020 11:05 AM CD MIXER 300 mg 300 mg 300 mg, Oral, ONCE, 1 dose, 04/03/20 at 1145, SADIE, Reason for Anti-Infective: Documented Infection, Documented Infection Site: Skin / Soft Tissue, Duration of Therapy: 10 days, Restricted use approved by: ADC PROVIDER documented in this encounter
[2020-04-10] MEDS ORDERED: MORPHINE 2 MG/ML SYR ONE ×2 (14:25→15:12)
[2020-04-10] MEDS ORDERED: ONDANSETRON 4 MG/2 ML VIAL ONE (14:25)
[2020-04-10 14:32] LABS: Absolute Lymphocytes (CBC) 2.3 K/uL (0.7-4.9); Basophils % 1.2 % (0-1.3); Hematocrit 35.9 % (36.0-45.0); Lymphocytes % 28.6 % (15.3-44.8); MPV 8.7 fL (7.6-11.3); RBC Red Blood Cell Count 3.95 M/uL (3.86-4.86)
[2020-04-10 14:34] LABS: Protime INR 1.03
[2020-04-10] MEDS ORDERED: BUPIVACAINE 0.5% PF 10 ML VIAL ONE (14:44)
[2020-04-10] MEDS ORDERED: LIDOCAINE 1% W/EPI 1:100,000 MDV 50 ML VIAL ONE (14:44)
[2020-04-10 14:48] LABS: ALT/SGPT 22 U/L (12-78); AST/SGOT 13 U/L (15-37); Alkaline Phosphatase 100 U/L (45-117); BUN Blood Urea Nitrogen 14 mg/dL (7-18); Bicarbonate 28 mmol/L (21-32); Bilirubin Direct < 0.1 mg/dL (0-0.2); Bilirubin Total 0.4 mg/dL (0.2-1.0); Glucose Level 84 mg/dL (74-106); Potassium 3.5 mmol/L (3.5-5.1); Protein, Total 7.7 g/dL (6.4-8.2); Sodium Level 141 mmol/L (136-145)
[2020-04-10] MEDS ORDERED: CLINDAMYCIN 600MG/D5W 600 MG/50 ML BAG IV ONE (15:01)
--- NOTE | 2020-04-10 15:14 | RAD REPORT ---
EXAM DESCRIPTION: RAD - Humerus Left - 04/10/2020 2:42 pm CLINICAL HISTORY: Left arm pain FINDINGS: No fracture is seen. Bones are osteoporotic. No bony lesion seen
--- NOTE | 2020-04-10 15:25 | ER ---
Nurse's Notes [facility] Name: Camila Fields Age: 54 yrs Sex: Female : 1965 Arrival Date: 04/10/2020 Time: 11:12 Bed 16 Private MD: Diagnosis: Cellulitis of left upper limb;Cutaneous abscess of left upper limb Presentation: 04/10 11:37 Chief complaint: Patient states: I have an abscess on the L upper arm. I have a ca1 schedule with Dr. William on Thursday but they said if anything changes and started to drain I should come to the ER. I've had it for 2 weeks and this morning, stuff just started coming out. Denies fever. Dressing in place, Appears dry and intact. Coronavirus screen: Client denies travel out of the [place] in the last 14 days. At this time, the client does not indicate any symptoms associated with coronavirus-19. Ebola Screen: Patient negative for fever greater than or equal to 101.5 degrees Fahrenheit, and additional compatible Ebola Virus Disease symptoms Patient denies exposure to infectious person. Patient denies travel to an Ebola-affected area in the 21 days before illness onset. No symptoms or risks identified at this time. Initial Sepsis Screen: Does the patient meet any 2 criteria? No. Patient's initial sepsis screen is negative. Does the patient have a suspected source of infection? No. Patient's initial sepsis screen is negative. Risk Assessment: Do you want to hurt yourself or someone else? Patient reports no desire to harm self or others. Onset of symptoms was April 10, 2020. 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 - Social history:: Smoking status: Patient reports the use of cigarette tobacco products, smokes one-half pack cigarettes per day. Screenin:08 Abuse screen: Denies threats or abuse. Nutritional screening: No deficits noted. tw2 Tuberculosis screening: No symptoms or risk factors identified. Fall Risk None identified. Assessment: 13:10 General: Appears in no apparent distress. obese, well groomed, Behavior is calm, tw2 cooperative, appropriate for age. Pain: Complains of pain in left bicep area. Neuro: Level of Consciousness is awake, alert, obeys commands, Oriented to person, place, time, situation. Cardiovascular: Heart tones S1 S2 Patient's skin is warm and dry. Respiratory: Airway is patent Respiratory effort is even, unlabored, Respiratory pattern is regular, symmetrical, Breath sounds are clear bilaterally. GI: No signs and/or symptoms were reported involving the gastrointestinal system. Abdomen is round non-distended, Bowel sounds present X 4 quads. : No signs and/or symptoms were reported regarding the genitourinary system. EENT: No signs and/or symptoms were reported regarding the EENT system. Derm: Abscess located on left bicep area is golf ball sized, is red, is raised. Musculoskeletal: Circulation, motion, and sensation intact. Range of motion: intact in all extremities. 14:30 Reassessment: Dr. Rodgers at bedside. tw2 14:30 Reassessment: Patient appears in no apparent distress at this time. No changes from tw2 previously documented assessment. Patient and/or family updated on plan of care and expected duration. Pain level reassessed. Patient is alert, oriented x 3, equal unlabored respirations, skin warm/dry/pink. 15:03 Reassessment: Dr. Rodgers at bedside as well as CHRISTINE Mcgee for I\T\D at this time. tw2 15:04 Reassessment: Patient appears in no apparent distress at this time. No changes from tw2 previously documented assessment. Patient and/or family updated on plan of care and expected duration. Pain level reassessed. Patient is alert, oriented x 3, equal unlabored respirations, skin warm/dry/pink. 16:10 Reassessment: Patient appears in no apparent distress at this time. No changes from tw2 previously documented assessment. Patient and/or family updated on plan of care and expected duration. Pain level reassessed. Patient is alert, oriented x 3, equal unlabored respirations, skin warm/dry/pink. Vital Signs: 11:37 BP 148 / 89; Pulse 79; Resp 16 S; Temp 97.8(TE); Pulse Ox 99% on R/A; Weight 86.18 kg ca1 (R); Height 5 ft. 9 in. (175.26 cm) (R); Pain 10/10; 13:10 BP 165 / 88; Pulse 74; Resp 17; Pulse Ox 99% on R/A; tw2 14:08 BP 159 / 85; Pulse 83; Resp 17; Pulse Ox 99% on R/A; tw2 15:00 BP 156 / 84; Pulse 77; Resp 18; Pulse Ox 98% on R/A; Pain 5/10; tw2 15:22 BP 142 / 74; Pulse 72; Resp 16; Temp 98.9(O); Pulse Ox 95% on R/A; mh5 16:10 BP 116 / 78; Pulse 74; Resp 18; Pulse Ox 99% on R/A; tw2 11:37 Body Mass Index 28.06 (86.18 kg, 175.26 cm) ca1 ED Course: 11:12 Patient arrived in ED. ag5 11:40 Triage completed. ca1 11:41 Arm band placed on right wrist. ca1 13:09 Placed in gown. Bed in low position. Call light in reach. athletic monitor on. Pulse ox tw2 on. NIBP on. Warm blanket given. 13:14 Wild Graham PA is PHCP. cp 13:14 Wild Howell MD is Attending Physician. cp 13:18 Dominga Mera, ANGEL is Primary Nurse. 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 5 14:05 Initial lab(s) drawn, by id, sent to lab. First set of blood cultures drawn Second set 5 of blood cultures drawn by id. 14:10 Inserted saline lock: 22 gauge in right in left antecubital area, using aseptic 5 technique. wrist, using aseptic technique. 14:12 Lactate Sent. [facility] 14:12 Procalcitonin Sent. 5 14:12 Blood Culture Adult (2) Sent. [facility] 14:12 Ptt, Activated Sent. 5 14:13 Basic Metabolic Panel Sent. 5 14:13 CBC with Diff Sent. 5 14:13 LFT's Sent. [facility] 14:13 PT-INR Sent. 5 14:13 Wound culture swab sent to lab. mh5 14:42 XRAY Humerus LEFT In Process Unspecified. EDMS 15:25 Boston Rodgers MD is Referral Physician. cp 16:12 IV discontinued, intact, bleeding controlled, No redness/swelling at site. Pressure tw2 dressing applied, x2 - to right wrist and left ac. Administered Medications: 14:15 Drug: Zofran (Ondansetron) 4 mg Route: IVP; Site: right forearm; jl7 16:13 Follow up: Response: No adverse reaction tw2 14:17 Drug: morphine 2 mg Route: IVP; Site: right forearm; jl7 14:44 CANCELLED (Physician Discretion): Clindamycin 900 mg IVPB once over 30 mins; (mix in 50 cp mL) 14:51 Drug: Clindamycin 600 mg Route: IVPB; Infused Over: 30 mins; Site: left forearm; tw2 15:20 Follow up: Response: No adverse reaction; IV Status: Completed infusion tw2 15:00 Drug: morphine 2 mg {Note: RASS 0.} Route: IVP; Site: right forearm; tw2 15:20 Follow up: Response: No adverse reaction; Pain is decreased; RASS: Alert and Calm (0) tw2 15:02 Drug: Lidocaine-Epinephrine -1%: (1:100,000) 1 application {Note: by Dr. Rodgers, tw2 christine mcgee at bedside as well..} Volume: 20 ml; Route: Infiltration; Site: wound; 15:02 Drug: Marcaine (0.5 %) 1 application {Note: theodore Hopper pa at bedside at this tw2 time..} Volume: 10 ml; Route: Infiltration; Outcome: 15:25 Discharge ordered by . cp 16:11 Discharged to home ambulatory. tw2 16:11 Condition: stable 16:11 Discharge instructions given to patient, Instructed on discharge instructions, follow up and referral plans. no drinking with medication, no driving heavy equipment, medication usage, Demonstrated understanding of instructions, follow-up care, medications, Prescriptions given X 1. 16:13 Patient left the ED. tw2 Signatures: Dispatcher [employer] EDMS Wild Graham PA PA cp Wise, Tara, RN RN tw2 India Bustos 5 Kalyan Gomez RN RN 7 Yuko Hanson RN RN ca1 Gaskin, Ajare ag5 Corrections: (The following items were deleted from the chart) 19:15 14:30 Reassessment: Dr. Rodgers at bedside jl7 tw2
--- NOTE | 2020-04-10 15:26 | EDPHYS ---
Physician Documentation [facility] Name: Camila Fields Age: 54 yrs Sex: Female : 1965 Arrival Date: 04/10/2020 Time: 11:12 Bed 16 Private MD: Wild Springer HPI: 04/10 13:20 This 54 yrs old Female presents to ER via Ambulatory with complaints of cp Abscess. 13:20 The patient presents with an abscess of the medial aspect left upper arm, the patient cp presents with a swollen area of the left upper arm. Description: draining, erythematous, swollen, tense. Onset: The symptoms/episode began/occurred 2 week(s) ago. Possible cause(s): unknown. Associated signs and symptoms: Pertinent positives: discharge, drainage, Pertinent negatives: fever. 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 - Social history:: Smoking status: Patient reports the use of cigarette tobacco products, smokes one-half pack cigarettes per day. ROS: 13:24 Constitutional: Negative for body aches, chills, fever, poor PO intake. cp 13:24 MS/extremity: Positive for pain, swelling, tenderness, of the left upper arm, Negative for decreased range of motion. 13:24 Skin: Positive for abscess, of the left upper arm. 13:24 All other systems are negative. Exam: 13:30 Constitutional: The patient appears in no acute distress, alert, awake, non-toxic, well cp developed, well nourished. 13:30 Head/Face: Normocephalic, atraumatic. cp 13:30 Eyes: Periorbital structures: appear normal, Sclera: no appreciated abnormality, Lids and lashes: appear normal, bilaterally. 13:30 ENT: External ear(s): are unremarkable, Nose: is normal, Mouth: Lips: moist, Oral mucosa: moist, Posterior pharynx: Airway: no evidence of obstruction, patent. 13:30 Chest/axilla: Inspection: normal. 13:30 Cardiovascular: Rate: normal, Rhythm: regular. 13:30 Respiratory: the patient does not display signs of respiratory distress, Respirations: normal, no use of accessory muscles, no retractions, labored breathing, is not present, Breath sounds: are clear throughout, no decreased breath sounds. 13:30 Abdomen/GI: Exam negative for discomfort, distension, guarding, Inspection: abdomen appears normal. 13:30 Skin: abscess, that is moderate sized, of the medial aspect left upper arm, with fluctuance, that is mild, mild surrounding erythema. Vital Signs: 11:37 BP 148 / 89; Pulse 79; Resp 16 S; Temp 97.8(TE); Pulse Ox 99% on R/A; Weight 86.18 kg ca1 (R); Height 5 ft. 9 in. (175.26 cm) (R); Pain 10/10; 13:10 BP 165 / 88; Pulse 74; Resp 17; Pulse Ox 99% on R/A; tw2 14:08 BP 159 / 85; Pulse 83; Resp 17; Pulse Ox 99% on R/A; tw2 15:00 BP 156 / 84; Pulse 77; Resp 18; Pulse Ox 98% on R/A; Pain 5/10; tw2 15:22 BP 142 / 74; Pulse 72; Resp 16; Temp 98.9(O); Pulse Ox 95% on R/A; mh5 16:10 BP 116 / 78; Pulse 74; Resp 18; Pulse Ox 99% on R/A; tw2 11:37 Body Mass Index 28.06 (86.18 kg, 175.26 cm) ca1 MDM: 13:15 Patient medically screened. cp 13:30 Differential diagnosis: abscess, cellulitis, insect bite, sepsis. cp 14:42 Physician consultation: Boston Rodgers MD was contacted at 14:42, regarding consult, cp patient's condition, in the emergency department to see patient at 14:30, will perform I\T\D in ED and patient is to continue outpatient oral antibiotics. 15:25 ED course: I\T\D performed by DR Waters. Minimal drainage expressed. Wants patient to cp continue clindamycin as prescribed and will see in clinic next 2-3 days. 15:25 Data reviewed: vital signs, nurses notes, lab test result(s), radiologic studies, plain cp films, and as a result, I will discharge patient. 04/10 13:15 Order name: Wound Culture 04/10 13:23 Order name: Basic Metabolic Panel; Complete Time: 15:24 04/10 13:23 Order name: CBC with Diff; Complete Time: 15:24 04/10 13:23 Order name: LFT's; Complete Time: 15:24 04/10 13:23 Order name: PT-INR; Complete Time: 15:24 04/10 13:23 Order name: Ptt, Activated; Complete Time: 15:24 04/10 13:23 Order name: Blood Culture Adult (2) 04/10 13:23 Order name: Procalcitonin; Complete Time: 15:24 04/10 13:23 Order name: Lactate; Complete Time: 15:24 04/10 13:23 Order name: XRAY Humerus LEFT; Complete Time: 15:24 04/10 13:23 Order name: Cardiac monitoring; Complete Time: 14:07 04/10 13:23 Order name: IV Saline Lock; Complete Time: 14:07 04/10 13:23 Order name: Labs collected and sent; Complete Time: 14:07 04/10 13:23 Order name: O2 Per Protocol; Complete Time: 14:07 04/10 13:23 Order name: O2 Sat Monitoring; Complete Time: 14:07 04/10 14:36 Order name: Incision \T\ Drainage Setup; Complete Time: 14:37 jl7 Administered Medications: 14:15 Drug: Zofran (Ondansetron) 4 mg Route: IVP; Site: right forearm; jl7 16:13 Follow up: Response: No adverse reaction tw2 14:17 Drug: morphine 2 mg Route: IVP; Site: right forearm; jl7 14:44 CANCELLED (Physician Discretion): Clindamycin 900 mg IVPB once over 30 mins; (mix in 50 cp mL) 14:51 Drug: Clindamycin 600 mg Route: IVPB; Infused Over: 30 mins; Site: left forearm; tw2 15:20 Follow up: Response: No adverse reaction; IV Status: Completed infusion tw2 15:00 Drug: morphine 2 mg {Note: RASS 0.} Route: IVP; Site: right forearm; tw2 15:20 Follow up: Response: No adverse reaction; Pain is decreased; RASS: Alert and Calm (0) tw2 15:02 Drug: Lidocaine-Epinephrine -1%: (1:100,000) 1 application {Note: by Dr. Rodgers, tw2 christine jaimes at bedside as well..} Volume: 20 ml; Route: Infiltration; Site: wound; 15:02 Drug: Marcaine (0.5 %) 1 application {Note: theodore Hopper pa at bedside at this tw2 time..} Volume: 10 ml; Route: Infiltration; Disposition: 15:35 Chart complete. cp 04/11 07:02 Co-signature as Attending Physician, Wild Howlel MD I agree with the assessment and [facility] plan of care. Disposition: 04/10/20 15:25 Discharged to Home. Impression: Cellulitis of left upper limb, Cutaneous abscess of left upper limb. - Condition is Stable. - Discharge Instructions: Skin Abscess, Cellulitis, Adult, Incision and Drainage. - Prescriptions for Tylenol- Codeine #3 300-30 mg Oral Tablet - take 2 tablets by ORAL route every 8 hours As needed; 15 tablet. - Medication Reconciliation Form, Thank You Letter, Antibiotic Education, Prescription Opioid Use form. - Follow up: Boston Rodgers MD; When: 2 - 3 days; Reason: Wound Recheck. - Problem is new. - Symptoms have improved. Signatures: Dispatcher [employer] EDWild Wing MD MD cha Page, Corey, PA PA cp Dominga Mera RN RN tw2 Kalyan Gomez RN RN jl7 Yuko Hanson RN RN ca1 Corrections: (The following items were deleted from the chart) 04/10 14:44 14:42 Clindamycin 900 mg IVPB once over 30 mins; (mix in 50 mL) ordered. cp cp 16:13 15:25 04/10/2020 15:25 Discharged to Home. Impression: Cellulitis of left upper limb; tw2 Cutaneous abscess of left upper limb. Condition is Stable. Forms are Medication Reconciliation Form, Thank You Letter, Antibiotic Education, Prescription Opioid Use. Follow up: Boston Rodgers; When: 2 - 3 days; Reason: Wound Recheck. Problem is new. Symptoms have improved. cp
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
--- NOTE | 2020-04-10 15:44 | P.OP ---
Preoperative diagnosis: Infected seroma left upper are Postoperative diagnosis: The same Primary procedure: Incision, drainage, sharp debridement of abscess of left upper arm Estimated blood loss: Less than 10 cc Specimen: 9 sign Operative Technique: In emergency room the patient was position with the left arm abducted onto the side. Was then prepped with a alcohol prep solution. The area was infiltrated with 1% lidocaine. On the medial aspect is area that is start an open and drain. This was addressed with 11 blade. The opening was so widened and extended. We were able to open up this area see underneath there was a lot of chronic inflammatory tissue. A hemostat was uses gently spread this apart. We encounter a small bowel of more serous fluid. No screw no gross pus was noted. Below the traumatic scar there is another area with there was a collection. We were able traced its over with a hemostat again a counter incision was made in this area and allowed us to open again another seroma with some necrotic fat. It was not true pus that we saw. The number old nylon was now passed down through this and tied on itself to keep the wound open and draining during the postoperative period. At the end of procedure she was stable and a dressing was applied. She will be discharged, she is to continue her own her home antibiotics. She will see me on she is going to call my office for appointment. Complications: None Transferred to: Other Condition: Good
[2020-04-10 17:27] VITALS: TEMP 98.9
[2020-04-10 17:28] VITALS: BP 116/78; O2SAT 99
== END 2020-04-10 16:13 | disposition home or self-care (01) ==
LOC: ER 11:10
PROC: 0H9CXZZ Drainage of Left Upper Arm Skin, External Approach (ICD-10-PCS; principal; 2020-04-10)
DX: L03.114 Cellulitis of left upper limb (principal); F41.8 Other specified anxiety disorders; F17.210 Nicotine dependence, cigarettes, uncomplicated
CPT/HCPCS: 36415; 80048; 80076; 83605; 84145; 85025; 85610; 85730; 87040; 87070; 87205; 96365; 96375; 99284; J2270; J2405